=== PATIENT | male | born 1985 | race American Indian/Alaskan Native ===

== ENCOUNTER 2020-01-13 18:47 | Emergency (ER) | payer SELFPAY ==
--- NOTE | 2020-01-13 20:23 | Vascular Lab Report ---
VL venous duplex LE RT INDICATION / CLINICAL INFORMATION: Pain in right leg. COMPARISON: None available. FINDINGS: No evidence of deep vein thrombosis. IMPRESSION: 1. Negative study. Signer Name: Tre Zhang MD Signed: 01/13/2020 8:19 PM Workstation Name: [id number]
--- NOTE | 2020-01-13 20:35 | Emergency Department Report ---
ED Extremity Problem HPI - General Chief complaint: Extremity Injury, Lower Stated complaint: RIGHT KNEE PAIN Source: patient Mode of arrival: Ambulatory Limitations: No Limitations - History of Present Illness Initial comments: Patient is a 34-year-old -[place] male with no past medical history who presented to the ED with complaint of acute onset persistent posterior right knee pain that radiates to the right calf for the last 2 weeks. Patient states that the pain is worse with any flexion of the right knee and improves with extension. 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 Patient also states that he purchased heavy steel toed boots about a month ago and each time he wears t his with the pain gets worse. Patient states that at the time the pain was mild but subsequently the pain is worsened. Patient also states that he does travel a lot on the road to [place] last summer which was almost 2 weeks ago before the worsening of the symptoms. Patient denies chest pain, shortness of breath, numbness and tingling or weakness of right leg, hip pain, fall, nausea or vomiting, abdominal pain, hematuria, dysuria, syncope or cough. Patient states that he has Aleve for pain at home but has not taken this medication. MD Complaint: extremity pain (Posterior right knee pain), other (right knee and lower leg pain) -: Sudden, week(s) (2) Location: right, lower extremity (knee and lower leg) History of Same: No -: Yes arthralgia Radiation: none Quality: aching, sharp, constant Consistency: constant Improves with: nothing Worsens with: weight bearing, walking, exertion, palpation Associated Symptoms: denies other symptoms, myalgias, arthralgias. denies: chest pain, shortness of breath, fever, rash, other - Related Data Previous Rx's Medication Instructions Recorded Last Taken Type Cyclobenzaprine [Flexeril] 10 mg PO Q8H PRN #12 tablet 01/13/20 Unknown Rx Naproxen 500 mg PO Q12H #30 tablet 01/13/20 Unknown Rx Allergies Allergy/AdvReac Type Severity Reaction Status Date / Time No Known Allergies Allergy Unverified 01/13/20 18:57 ED Review of Systems ROS: Stated complaint: RIGHT KNEE PAIN Other details as noted in HPI Constitutional: denies: chills, fever Eyes: denies: eye pain, eye discharge, vision change ENT: denies: ear pain, throat pain Respiratory: denies: cough, shortness of breath, wheezing Cardiovascular: denies: chest pain, palpitations Endocrine: no symptoms reported Gastrointestinal: denies: abdominal pain, nausea, diarrhea Genitourinary: denies: urgency, dysuria Musculoskeletal: arthralgia (right knee), other (right knee and lower leg pain). denies: back pain, joint swelling Skin: denies: rash, lesions Neurological: denies: headache, weakness, paresthesias Psychiatric: denies: anxiety, depression Hematological/Lymphatic: denies: easy bleeding, easy bruising ED Past Medical Hx - Past Medical History Previous Medical History?: No - Surgical History Past Surgical History?: No - Social History Smoking Status: Current Every Day Smoker Substance Use Type: Alcohol, Marijuana - Medications Home Medications: Home Medications Medication Instructions Recorded Confirmed Last Taken Type Cyclobenzaprine [Flexeril] 10 mg PO Q8H PRN #12 tablet 01/13/20 Unknown Rx Naproxen 500 mg PO Q12H #30 tablet 01/13/20 Unknown Rx ED Physical Exam - General Limitations: No Limitations General appearance: alert, in no apparent distress - Head Head exam: Present: atraumatic, normocephalic, normal inspection - Eye Eye exam: Present: normal appearance, PERRL, EOMI Pupils: Present: normal accommodation - ENT ENT exam: Present: normal exam, normal orophraynx, mucous membranes moist, TM's normal bilaterally, normal external ear exam - Neck Neck exam: Present: normal inspection, full ROM. Absent: tenderness, meningismus, lymphadenopathy, thyromegaly - Respiratory Respiratory exam: Present: normal lung sounds bilaterally. Absent: respiratory distress, wheezes, rhonchi, chest wall tenderness, accessory muscle use, decreased breath sounds, prolonged expiratory - Cardiovascular Cardiovascular Exam: Present: regular rate, normal rhythm, normal heart sounds. Absent: systolic murmur, diastolic murmur, rubs, gallop - GI/Abdominal GI/Abdominal exam: Present: soft, normal bowel sounds. Absent: tenderness, guarding, rebound, hyperactive bowel sounds, hypoactive bowel sounds, organomegaly - Extremities Exam Extremities exam: Present: normal inspection, full ROM, tenderness (Palpable right knee tenderness with flexion and active ROM), normal capillary refill, calf tenderness (posterior right lower leg tenderness) - Back Exam Back exam: Present: normal inspection, full ROM. Absent: tenderness, CVA tenderness (R), CVA tenderness (L), muscle spasm, paraspinal tenderness, vertebral tenderness - Neurological Exam Neurological exam: Present: alert, oriented X3, CN II-XII intact, normal gait, reflexes normal - Psychiatric Psychiatric exam: Present: normal affect, normal mood - Skin Skin exam: Present: warm, dry, intact, normal color. Absent: rash ED Course Vital Signs 01/13/20 18:53 Temperature 98.2 F Pulse Rate 68 Respiratory 18 Rate Blood Pressure 138/69 O2 Sat by Pulse 100 Oximetry ED Medical Decision Making - Radiology Data Radiology results: report reviewed, image reviewed Findings [facility] [address] [id number] Vascular Lab Report Signed Patient: HYUN BENZ MR# : [id number] : 1985 Acct:[id number] Age/Sex: 34 / M ADM Date: 01/13/20 Loc: ED Attending Dr: Ordering Physician: YEISON ANDINO Date of Service: 01/13/20 Procedure(s): VL venous duplex LE RT Accession Number(s): [id number] cc: YEISON ANDINO VL venous duplex LE RT INDICATION / CLINICAL INFORMATION: Pain in right leg. COMPARISON: None available. FINDINGS: No evidence of deep vein thrombosis. IMPRESSION: 1. Negative study. Signer Name: Tre Zhang MD Signed: 01/13/2020 8:19 PM Workstation Name: [id number] Transcribed By: TM Dictated By: Tre Zhang MD Electronically Authenticated By: Tre Zhang MD Signed Date/Time: 01/13/202018 DD/ 17 TD/TT: - Medical Decision Making This is a 34-year-old -[place] male with no past medical history who presented to the ED with complaint of acute onset persistent posterior right knee pain that radiates to the right calf for the last 2 weeks. Patient states that the pain is worse with any flexion of the right knee and improves with extension. 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 Patient also states that he purchased heavy steel toed boots about a month ago and each time he wears this with the pain gets worse. Patient states that at the time the pain was mild but subsequently the pain is worsened. Patient also states that he does travel a lot on the road to [place] last summer which was almost 2 weeks ago before the worsening of the symptoms. In the ED, patient is alert and oriented x3 and is not in distress. Patient was treated for pain in the ED and the left leg Doppler ultrasound showed no evidence of DVT. Patient symptoms are likely due to tendinitis or ligament injury. Patient right knee was splinted with Sven wrap and the patient discharged home and advised to take Aleve as needed for pain. Patient was advised to follow-up with his primary care physician in 5 to 7 days for reevaluation or return to the ED immediately if symptoms get worse. - Differential Diagnosis Knee sprain; Muscle strain; Tendonitis; DVT Critical care attestation.: If time is entered above; I have spent that time in minutes in the direct care of this critically ill patient, excluding procedure time. ED Disposition Clinical Impression: Tendinitis of right knee Sprain of right knee/leg Qualifiers: Encounter type: initial encounter Qualified Code(s): S83.91XA - Sprain of unspecified site of right knee, initial encounter Muscle strain of right knee Qualifiers: Encounter type: initial encounter Qualified Code(s): S86.911A - Strain of unspecified muscle(s) and tendon(s) at lower leg level, right leg, initial encounter Disposition: DC-01 TO HOME OR SELFCARE Is pt being admited?: No Does the pt Need Aspirin: No Condition: Stable Instructions: Muscle Strain (ED), Tendinitis (ED), Knee Sprain (ED) Additional Instructions: The right leg Doppler ultrasound shows no evidence of DVT or blood clot. Therefore your injuries are likely due to muscle strain, knee sprain or tendinitis. Apply the Sven wrap as needed to stabilize the right knee especially at work. Take medications with food, drink plenty of fluids and follow-up with your primary care physician in 5 to 7 days for reevaluation or return to the ED immediately if symptoms get worse. Prescriptions: Cyclobenzaprine [Flexeril] 10 mg PO Q8H PRN #12 tablet PRN Reason: Muscle Spasm Naproxen 500 mg PO Q12H #30 tablet Referrals: CARBUCCIA,SOHAIL, MD [Staff Physician] - 7-10 days Time of Disposition: 20:42 Print Language: AZERI
[2020-01-13] MEDS ORDERED: predniSONE 20 MG TAB PO ONE (20:46)
[2020-01-13] MEDS ORDERED: ACETAMINOPHEN 500 MG TAB PO ONE (20:46)
[2020-01-13 21:09] VITALS: BP 132/70
== END 2020-01-13 21:10 | disposition home or self-care (01) ==
LOC: ED 18:47
DX: S83.91XA Sprain of unspecified site of right knee, initial encounter (principal); M76.9 Unspecified enthesopathy, lower limb, excluding foot; F17.200 Nicotine dependence, unspecified, uncomplicated; F12.10 Cannabis abuse, uncomplicated; Z79.899 Other long term (current) drug therapy; X58.XXXA Exposure to other specified factors, initial encounter; Y93.89 Activity, other specified; Y92.89 Other specified places as the place of occurrence of the external cause; Y99.8 Other external cause status
CPT/HCPCS: 93971; 99283; J7512